=== PATIENT | male | born 1960 | race Caucasian/White ===

== ENCOUNTER 2016-10-06 19:30 | Inpatient (IN) | payer BC ==
[~2016-10-06] VITALS: Ht 182.9 cm; Wt 65.2 kg
[2016-10-06 19:43] VITALS: BP 152/89; RESP 18
[2016-10-06] MEDS ORDERED: ATOR80TA75 PO (20:34)
[2016-10-06] MEDS ORDERED: ASC500 PO (20:34)
[2016-10-06] MEDS ORDERED: TAMS-14 PO (20:34)
[2016-10-06] MEDS ORDERED: AMLO2.5T78 PO (20:34)
[2016-10-06] MEDS ORDERED: CHOL100062 PO (20:35)
[2016-10-06] MEDS: HYDROmorphONE 1 MG/ML SYG IV PRN (21:14)
[2016-10-06] MEDS ORDERED: NACL 0.9% 3 ML SYG IV SCH (21:30)
[2016-10-06] MEDS ORDERED: ZOLPIDEM 5 MG TAB PO PRN (21:30)
[2016-10-06] MEDS ORDERED: DOCUSATE SODIUM 100 MG CAP PO PRN (21:30)
[2016-10-06] MEDS ORDERED: BISACODYL (EC) 5 MG TAB PO PRN (21:30)
[2016-10-06] MEDS ORDERED: ACETAMINOPHEN 325 MG TAB PO PRN (21:30)
--- NOTE | 2016-10-06 21:46 | HP ---
Date/Time of Note Date/Time of Note DATE: 10/06/16 TIME: 21:33 Assessment/Plan VTE Prophylaxis VTE Prophylaxis Intervention: SCD's Assessment/Plan Chief Complaint/Hosp Course This is a 56-year-old male [facility]: #1 obstructing nephrolithiasis: CAT scan on 10/05/2016 showed a 5 mm obstructing left UPJ stone causing dilatation of the left renal collecting system. There also are small nonobstructive stones within the right renal collecting system measuring up to 2 mm. At the current time I will order stat renal ultrasound. His creatinine on his labs at the transferring facility was 0.8. Will order stat CBC CMP urinalysis and urine culture. Discussed with urology archivist economic history, no need for urgent stent placement at this time. If fevers develop, then will need urgent intervention. IV fluid hydration of normal saline at 125 cc an hour. IV Dilaudid for pain control, once pain better controlled will try toradol. Flomax. #2 Multiple nonobstructing right-sided kidney stones. Patient has nonobstructive kidney stones on the right side. Continue IV fluid hydration at this time Flomax. IV pain control as per #1 #3 Lactic acidosis: Patient had a lactic acid approximately above 3 on his transfer documentation. We will repeat a stat lactate right now. Continue IV fluid hydration right now. #4 colonic diverticulosis: recommend high fiber diet, continue to monitor. #5 hypertension: Continue home medications. #6 DVT and GI prophylaxis: SCDs, Protonix. Further treatment strategy will be implemented as per the clinical course. Problems: HPI/ROS Admit Date/Time Admit Date/Time Oct 06, 2016 at 19:30 Hx of Present Illness Chief complaint: Left flank pain/kidney stone This is a 56-year-old male with past medical history of kidney stones who comes in today transferred from [facility] for left-sided kidney stones. Patient was recently seen on 10/05 at [facility] for hematuria. Patient was given IV pain medications and found to have a 5 mm obstructing stone of the left kidney as well as small 2 mm stones in the right kidney. Patient was discharged home. He returned today on 10/06/2016 back to [facility] secondary to nausea and vomiting and pain. He denied any fevers. He had left-sided flank pain. Patient was then subsequently transferred to [facility]. Of note on patient's labs there was white blood cell count of 11. Patient also had a lactate which was 2.3 and then repeat was elevated at 3. At the current time patient is lying comfortably in bed after receiving Dilaudid upon reaching [facility]. Allergies: NKDA Medications: See TITO ROS Const: As per HPI Eyes : No pain discharge or redness or change in visual acuity ENT: No pain, sore throat, congestion, congestion, dysphagia or discharge Respiratory: No shortness of breath, cough, sputum, wheezing, or pleuritic pain Cardiovascular: No chest pain, palpitation, PND, or edema GI : no change in appetite, abdominal pain, nausea, vomiting, diarrhea, constipation, or change in the color his stool Genitourinary: As per HPI Musculoskeletal: No joint pain, back pain, neck pain, restricted range of motion in neck or joints Skin: No rash, bruising or hives Neuro: No headache, dizziness, syncope, seizure, focal weakness Endocrine: No polyuria, polydipsia, temperature intolerance Psych: No hallucination, depression, anxiety or suicidal ideation PMH/Family/Social Past Medical History Kidney stones, 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 HEENT: Atraumatic, normocephalic. The pupils are equal, round and reactive. Extraocular motor are intact Neck: Supple with full range of motion. No rigidity or meningismus Chest: Nontender Lungs: Clear to auscultation bilaterally no crackles rales or wheezing Heart: Normal S1-S2, Regular rhythm and rate. No murmur, S3, or S4 Abdomen: Soft , nontender, nondistended , bowel sounds are present. No guarding no rebound tenderness , No masses or organomegaly. Mild CVA tenderness on the left to palpation. Extremities: Normal to inspection, no edema no cyanosis Neurologic: Normal mental status, speech normal, cranial nerves II through XII are intact, motor and sensory are intact, mild decrease in strength of the right upper and lower extremities compared to the left secondary to previous CVA. Additional Comments CT scan: 5mm obstructing UPJ stone causing dilatation of the left renal collecting sytstem small nonobstructing stones within the right renal collecting system measuring up to 2mm. diffuse colonic diverticulosis. please see transfer documentation for further information Medications Medications Current Medications Hydromorphone HCl (Dilaudid) 1 mg Q4H PRN IV PAIN Last administered on 21:14; Admin Dose 1 MG; Start 10/06/16 at 20:30 JEAN GRANT Oct 06, 2016 21:44
--- NOTE | 2016-10-06 22:55 | RADRPT ---
PROCEDURE: Renal US. CLINICAL INDICATION: Flank pain. Clinical concern for hydronephrosis TECHNIQUE: Multiple sonographic images of the kidneys were obtained. The images were reviewed on a PACS workstation. COMPARISON: No prior studies are available for comparison. FINDINGS: Right kidney: Normal in size, contour and echogenicity. No mass, calculus or hydronephrosis is pre sent. Renal size is estimated at 11.4 cm. Left kidney: Normal in size, contour and echogenicity. Mild hydronephrosis is present. The echoge joshua shadowing focus of 3 mm in the interpolar region and likely a calculus. No evidence of mass. R enal size is estimated at 11 cm. Urinary bladder: Unremarkable RPTAT:HJJR IMPRESSION: Mild left hydronephrosis with a small 3 mm left renal calculus. Physician Zia Date Time Electronically viewed and signed by Physician Zia on 10/06/2016 22:55 /
[2016-10-06 23:14] LABS: ADD SCAN DIFF NO
[2016-10-06 23:15] LABS: BASOPHILS % 0.3 % (0.0-2.0); EOSINOPHILS # 0.1 10^3/ul (0.0-0.5); EOSINOPHILS % 0.5 % (0.0-7.0); HEMOGLOBIN 13.6 g/dl (14.0-18.0); LYMPHOCYTES # 1.3 10^3/ul (0.8-2.9); LYMPHOCYTES % 9.8 % (15.0-51.0); MEAN CORPUSCULAR HEMOGLOBIN 30.4 pg (29.0-33.0); MEAN CORPUSCULAR VOLUME 89.3 fl (82.0-101.0); MEAN PLATELET VOLUME 9.2 fl (7.4-10.4); MONOCYTE # 0.8 10^3/ul (0.3-0.9); MONOCYTES % 5.8 % (0.0-11.0); NEUTROPHIL # 10.8 10^3/ul (1.6-7.5); NEUTROPHILS % 83.4 % (39.0-77.0); PLATELET COUNT 315 10^3/UL (140-415); RED BLOOD COUNT 4.48 10^6/ul (4.70-6.10); RED CELL DISTRIBUTION WIDTH 13.2 % (11.5-14.5)
[2016-10-06] MEDS: SOD CHLORIDE 0.9% 1,000 ML IV SCH (23:17)
[2016-10-06 23:34] LABS: ALBUMIN 4.8 g/dl (3.3-4.9); ALBUMIN/GLOBULIN RATIO 2.18; BILIRUBIN,INDIRECT 1.5 mg/dl (0-1.1); BILIRUBIN,TOTAL 1.5 mg/dl (0.2-1.3); CALCIUM 9.9 mg/dl (8.4-10.2); CREATININE 0.65 mg/dl (0.61-1.24); POTASSIUM 3.9 mmol/L (3.5-5.1)
[2016-10-07] MEDS ORDERED: ASPI-664 PO
[2016-10-07 00:04] LABS: ADD UMIC YES; UR ASCORBIC ACID 20 mg/dL (NEGATIVE); UR BACTERIA FEW /HPF (NONE SEEN); UR BILIRUBIN (Dip) NEGATIVE (NEGATIVE); UR BLOOD (Dip) 3+ mg/dL (NEGATIVE); UR CLARITY SLIGHTLY CLOUDY (CLEAR); UR COLOR YELLOW (YELLOW); UR GLUCOSE (Dip) NEGATIVE (NEGATIVE); UR KETONES (Dip) NEGATIVE (NEGATIVE); UR LEUKOCYTE ESTERASE (Dip) 1+ Leu/ul (NEGATIVE); UR MUCUS FEW /HPF (NONE SEEN); UR NITRITE (Dip) NEGATIVE (NEGATIVE); UR RBC > 182 /HPF (0-5); UR SPECIFIC GRAVITY (Dip) 1.014 (1.003-1.030); UR TOTAL PROTEIN (Dip) NEGATIVE (NEGATIVE); UR UROBILINOGEN (Dip) NEGATIVE (NEGATIVE)
[2016-10-07] MEDS: HYDROmorphONE 1 MG/ML SYG IV PRN ×2 (00:51→06:08)
[2016-10-07] MEDS: ONDANSETRON 4 MG INJ IV PRN ×2 (00:56→10:06)
[2016-10-07] MEDS: LEVOFLOXACIN 750MG/D5W (PMX) 150 ML IVPB SCH (02:02)
[2016-10-07] MEDS ORDERED: KETOROLAC 15 MG INJ IV STA (02:08)
[2016-10-07 03:37] VITALS: BP 142/84; RESP 18
[2016-10-07] MEDS: SOD CHLORIDE 0.9% 1,000 ML IV SCH ×4 (05:28→20:31)
[2016-10-07] MEDS: PANTOPRAZOLE 40 MG INJ IV SCH (06:08)
[2016-10-07 06:12] LABS: ADD SCAN DIFF NO
[2016-10-07 06:15] LABS: BASOPHILS % 0.2 % (0.0-2.0); EOSINOPHILS # 0.1 10^3/ul (0.0-0.5); EOSINOPHILS % 0.5 % (0.0-7.0); HEMATOCRIT 38.8 % (42.0-52.0); HEMOGLOBIN 13.4 g/dl (14.0-18.0); LYMPHOCYTES # 1.5 10^3/ul (0.8-2.9); LYMPHOCYTES % 13.7 % (15.0-51.0); MEAN CORPUSCULAR HEMOGLOBIN 30.8 pg (29.0-33.0); MEAN CORPUSCULAR HGB CONC 34.5 g/dl (32.0-37.0); MEAN CORPUSCULAR VOLUME 89.2 fl (82.0-101.0); MEAN PLATELET VOLUME 9.4 fl (7.4-10.4); MONOCYTE # 0.6 10^3/ul (0.3-0.9); MONOCYTES % 5.7 % (0.0-11.0); NEUTROPHIL # 8.4 10^3/ul (1.6-7.5); NEUTROPHILS % 79.6 % (39.0-77.0); PLATELET COUNT 307 10^3/UL (140-415); RED BLOOD COUNT 4.35 10^6/ul (4.70-6.10); RED CELL DISTRIBUTION WIDTH 13.2 % (11.5-14.5); WHITE BLOOD COUNT 10.6 10^3/ul (4.8-10.8)
[2016-10-07 06:45] LABS: ALBUMIN 4.6 g/dl (3.3-4.9); BILIRUBIN,INDIRECT 1.6 mg/dl (0-1.1); BILIRUBIN,TOTAL 1.6 mg/dl (0.2-1.3); CALCIUM 8.9 mg/dl (8.4-10.2); CREATININE 0.67 mg/dl (0.61-1.24); POTASSIUM 3.7 mmol/L (3.5-5.1); TOTAL PROTEIN 6.9 g/dl (6.1-8.1)
[2016-10-07 08:04] VITALS: BP 136/83; PULSE 82; RESP 19
--- NOTE | 2016-10-07 08:40 | PN ---
Date/Time of Note Date/Time of Note DATE: 10/07/16 TIME: 08:36 Assessment/Plan VTE Prophylaxis VTE Prophylaxis Intervention: SCD's Lines/Catheters IV Catheter Type (from Nrsg): Peripheral IV Assessment/Plan Problems: (1) Essential hypertension Status: Chronic Comment: Continue him on his amlodipine. Please note he is on tamsulosin but he denies any specific known prostate issues. I will check his postvoid residual. If he does have significant postvoid residual the tamsulosin can be rotated over to more routine alpha-steph to get 2 jobs from one medication (2) Hydronephrosis, left Status: Acute Comment: Urology has been consulted; Dr. Arnett, who will be seeing the patient today. (3) Recurrent kidney stones Status: Chronic Comment: The patient reports never having done 20 for urinary calcium collection or oxalate evaluations. In addition to the best of her knowledge she has not had a parathyroid hormone evaluation. Given his serum calcium I doubt that he has a parathyroid hormone disturbance however to complete the evaluation I will order the appropriate workup. (4) Hyperlipidemia Status: Chronic Comment: Continue statin therapy which she is tolerating without complications Qualifiers: Hyperlipidemia type: pure hypercholesterolemia Qualified Code: E78.00 - Pure hypercholesterolemia (5) Tobacco abuse Status: Chronic Comment: Strongly counseled to discontinue this. Especially in light of the prior CVA (6) Status post CVA Onset Date: ~ 09/2014 Status: Chronic Comment: Risk factor modification aggressively. This includes cessation of smoking. This is far enough in the past that would not interfere with his clearance for any type of anesthetic procedure at this time. (7) Diverticulosis Status: Chronic Comment: Noted and inactive. Qualifiers: Diverticulosis site: diverticulosis of large intestine Diverticulosis bleeding: diverticulosis without bleeding Qualified Code: K57.30 - Diverticulosis of large intestine without hemorrhage Subjective 24 Hr Interval Summary Free Text/Dictation Patient reports that his pain control is adequate at this time. He reports prior history of renal stones. Constitutional: no complaints (No fevers chills or sweats) Respiratory: no complaints Cardiovascular: no complaints Gastrointestinal: no complaints Genitourinary: bleeding Exam/Review of Systems Vital Signs Vitals Vital Signs Date Time Temp Pulse Resp B/P Pulse Ox O2 Delivery O2 Flow Rate FiO2 10/07/16 08:04 98.0 82 19 136/83 93 Room Air Intake and Output 10/06/16 10/06/16 10/07/16 15:00 23:00 07:00 Intake Total 960 ml Output Total 550 ml Balance 410 ml Exam Constitutional: alert, oriented Neck: non-tender, supple Respiratory: clear to auscultation, normal air movement Cardiovascular: nl pulses, regular rate and rhythm Gastrointestinal: nl liver, spleen, non-tender, soft Results Result Diagram: 10/07/16 0557 10/07/16 0557 Results 24 hrs Laboratory Tests Test 10/06/16 22:19 10/06/16 23:15 10/07/16 05:57 White Blood Count 13.0 H 10.6 Red Blood Count 4.48 L 4.35 L Hemoglobin 13.6 L 13.4 L Hematocrit 40.0 L 38.8 L Mean Corpuscular Volume 89.3 89.2 Mean Corpuscular Hemoglobin 30.4 30.8 Mean Corpuscular Hemoglobin Concent 34.0 34.5 Red Cell Distribution Width 13.2 13.2 Platelet Count 315 307 Mean Platelet Volume 9.2 9.4 Neutrophils % 83.4 H 79.6 H Lymphocytes % 9.8 L 13.7 L Monocytes % 5.8 5.7 Eosinophils % 0.5 0.5 Basophils % 0.3 0.2 Nucleated Red Blood Cells % 0.0 0.0 Neutrophils # 10.8 H 8.4 H Lymphocytes # 1.3 1.5 Monocytes # 0.8 0.6 Eosinophils # 0.1 0.1 Basophils # 0.0 0.0 Nucleated Red Blood Cells # 0.0 0.0 Sodium Level 140 137 Potassium Level 3.9 3.7 Chloride Level 98 102 Carbon Dioxide Level 27 26 Anion Gap 19 H 13 Blood Urea Nitrogen 13 12 Creatinine 0.65 0.67 Glucose Level 117 105 Lactic Acid Level 2.2 Calcium Level 9.9 8.9 Total Bilirubin 1.5 H 1.6 H Direct Bilirubin 0.00 0.00 Indirect Bilirubin 1.5 H 1.6 H Aspartate Amino Transf (AST/SGOT) 30 29 Alanine Aminotransferase (ALT/SGPT) 34 36 Alkaline Phosphatase 101 90 Total Protein 7.0 6.9 Albumin 4.8 4.6 Globulin 2.20 2.30 Albumin/Globulin Ratio 2.18 2.00 Urine Color YELLOW Urine Clarity SLIGHTLY CLOUDY A Urine pH 5.0 Urine Specific [place] 1.014 Urine Ketones NEGATIVE Urine Nitrite NEGATIVE Urine Bilirubin NEGATIVE Urine Urobilinogen NEGATIVE Urine Leukocyte Esterase 1+ H Urine Microscopic RBC > 182 H Urine Microscopic WBC 23 H Urine Bacteria FEW A Urine Mucus FEW A Urine Hemoglobin 3+ H Urine Glucose NEGATIVE Urine Total Protein NEGATIVE Medications Medications Current Medications Hydromorphone HCl 1 mg 1 mg Q4H PRN IV PAIN Last administered on 10/07/16 06:08 ; Admin Dose 1 MG; Start 10/06/16 at 20:30 Sodium Chloride (NS) 1,000 ml @ 125 mls/hr Q8H IV Last administered on 23:17; Admin Dose 125 MLS/HR; Start 10/06/16 at 21:28 Ondansetron HCl (Zofran Inj) 4 mg Q6H PRN IV NAUSEA AND/OR VOMITING Last administered on 10/07/16 00:56; Admin Dose 4 MG; Start 10/06/16 at 21:30 Acetaminophen (Tylenol Tab) 650 mg Q6H PRN PO PAIN LEVEL 1-3 OR FEVER; Start at 21:30 Docusate Sodium (Colace) 100 mg Q12H PRN PO CONSTIPATION; Start 10/06/16 at 21: 30 Bisacodyl (Dulcolax) 5 mg DAILY PRN PO CONSTIPATION; Start 10/06/16 at 21:30 Zolpidem Tartrate (Ambien) 5 mg QHS PRN PO SLEEP; Start 10/06/16 at 21:30 Pantoprazole (Protonix Iv) 40 mg DAILY@06 IV Last administered on 10/07/16 06: 08; Admin Dose 40 MG; Start 10/07/16 at 06:00 Amlodipine Besylate (Norvasc) 2.5 mg DAILY PO ; Start 10/07/16 at 09:00 Atorvastatin Calcium (Lipitor) 80 mg DAILY PO ; Start 10/07/16 at 09:00 Cholecalciferol (Vitamin D) 1,000 unit DAILY PO ; Start 10/07/16 at 09:00 Tamsulosin HCl 0.4 mg 0.4 mg DAILY PRN PO kidney stone; Start 10/06/16 at 22:00 Levofloxacin/ Dextrose (Levaquin 750 Mg/ D5W 150 ml (Pmx)) 150 ml @ 100 mls/hr Q24H IVPB Last administered on 10/07/16t 02:02; Admin Dose 100 MLS/HR; Start 10/07/16 at 01:00 HANS UP MD Oct 07, 2016 08:39
[2016-10-07] MEDS ORDERED: KETOROLAC 30 MG INJ IV STA (09:04)
[2016-10-07] MEDS ORDERED: LACTATED RINGER'S 1,000 ML IV ONE ×2 (09:30→18:30)
--- NOTE | 2016-10-07 09:31 | CONS ---
Date/Time of Note Date/Time of Note DATE: 10/07/16 TIME: 09:11 Assessment/Plan Assessment/Plan Additional Assessment/Plan Patient with 5mm L UPJ stone with obstruction and flank pain. Should be given a trial of spontaneous passage. Recommend around the clock NSAIDS with Flomax and PRN norco. He can be discharged with a strainer and f/u with urologist in his network. He can continue on abx until Ucx returns if one was sent from [place]. I did discuss possibility of needing surgical intervention with URS/laser lithotripsy if he fails trial of spontaneous passage, but the rate of spontaneous passage of 5mm stones in the proximal ureter without medical intervention rages from 30-98% and in the distal ureter is 71-98%. It would be much safer for trial of spontaneous passage. If patient spikes fever > 101.3, develops vomiting where he cannot marcus PO, develops pyelonephritis; then stenting would be indicated. Consultation Date/Type/Reason Admit Date/Time Oct 06, 2016 at 19:30 Reason for Consultation L UPJ 5mm stone with flank pain Hx of Present Illness Patient with hx of nephrolithasis transferred from [place] for management of pain for 5mm L UPJ stone. No fever. No hematuria. Has previously had spontaneous stone passage as well as procedure. Reports he has had pain for 2d. No nausea/ vomiting. On transfer Cr. normal. Lactic acid elevated, now normalized after IVF. Constitutional: improved, no complaints (No fevers chills or sweats) Respiratory: no complaints Cardiovascular: no complaints Gastrointestinal: no complaints Genitourinary: no complaints Skin: no complaints Neurologic: no complaints Endocrine: no complaints Lymphatic: no complaints Psychological: no complaints Immunologic: no complaints Past Medical History nephrolithiasis Medical History: hypertension Past Surgical History URS for right renal stone Family History Significant Family History: no pertinent family hx Social History Alcohol Use: none Smoking Status: Never smoker Drug Use: marijuana Exam/Review of Systems Vital Signs Vitals Vital Signs Date Time Temp Pulse Resp B/P Pulse Ox O2 Delivery O2 Flow Rate FiO2 10/07/16 08:04 98.0 82 19 136/83 93 Room Air Intake and Output 10/06/16 10/06/16 10/07/16 15:00 23:00 07:00 Intake Total 960 ml Output Total 550 ml Balance 410 ml Exam no acute distress Constitutional: alert Respiratory: clear to auscultation Cardiovascular: regular rate and rhythm Gastrointestinal: non-tender, soft Genitourinary - Male: CVA tenderness (mild on left) Musculoskeletal: nl extremities to inspection Results Result Diagram: 10/07/16 0557 10/07/16 0557 Results 24 hrs Laboratory Tests Test 10/06/16 22:19 10/06/16 23:15 10/07/16 05:57 White Blood Count 13.0 H 10.6 Red Blood Count 4.48 L 4.35 L Hemoglobin 13.6 L 13.4 L Hematocrit 40.0 L 38.8 L Mean Corpuscular Volume 89.3 89.2 Mean Corpuscular Hemoglobin 30.4 30.8 Mean Corpuscular Hemoglobin Concent 34.0 34.5 Red Cell Distribution Width 13.2 13.2 Platelet Count 315 307 Mean Platelet Volume 9.2 9.4 Neutrophils % 83.4 H 79.6 H Lymphocytes % 9.8 L 13.7 L Monocytes % 5.8 5.7 Eosinophils % 0.5 0.5 Basophils % 0.3 0.2 Nucleated Red Blood Cells % 0.0 0.0 Neutrophils # 10.8 H 8.4 H Lymphocytes # 1.3 1.5 Monocytes # 0.8 0.6 Eosinophils # 0.1 0.1 Basophils # 0.0 0.0 Nucleated Red Blood Cells # 0.0 0.0 Sodium Level 140 137 Potassium Level 3.9 3.7 Chloride Level 98 102 Carbon Dioxide Level 27 26 Anion Gap 19 H 13 Blood Urea Nitrogen 13 12 Creatinine 0.65 0.67 Glucose Level 117 105 Lactic Acid Level 2.2 Calcium Level 9.9 8.9 Total Bilirubin 1.5 H 1.6 H Direct Bilirubin 0.00 0.00 Indirect Bilirubin 1.5 H 1.6 H Aspartate Amino Transf (AST/SGOT) 30 29 Alanine Aminotransferase (ALT/SGPT) 34 36 Alkaline Phosphatase 101 90 Total Protein 7.0 6.9 Albumin 4.8 4.6 Globulin 2.20 2.30 Albumin/Globulin Ratio 2.18 2.00 Urine Color YELLOW Urine Clarity SLIGHTLY CLOUDY A Urine pH 5.0 Urine Specific [place] 1.014 Urine Ketones NEGATIVE Urine Nitrite NEGATIVE Urine Bilirubin NEGATIVE Urine Urobilinogen NEGATIVE Urine Leukocyte Esterase 1+ H Urine Microscopic RBC > 182 H Urine Microscopic WBC 23 H Urine Bacteria FEW A Urine Mucus FEW A Urine Hemoglobin 3+ H Urine Glucose NEGATIVE Urine Total Protein NEGATIVE Medications Medications Current Medications Sodium Chloride (NS) 1,000 ml @ 125 mls/hr Q8H IV Last administered on 23:17; Admin Dose 125 MLS/HR; Start 10/06/16 at 21:28 Ondansetron HCl (Zofran Inj) 4 mg Q6H PRN IV NAUSEA AND/OR VOMITING Last administered on 10/07/16 00:56; Admin Dose 4 MG; Start 10/06/16 at 21:30 Acetaminophen (Tylenol Tab) 650 mg Q6H PRN PO PAIN LEVEL 1-3 OR FEVER; Start at 21:30 Docusate Sodium (Colace) 100 mg Q12H PRN PO CONSTIPATION; Start 10/06/16 at 21: 30 Bisacodyl (Dulcolax) 5 mg DAILY PRN PO CONSTIPATION; Start 10/06/16 at 21:30 Zolpidem Tartrate (Ambien) 5 mg QHS PRN PO SLEEP; Start 10/06/16 at 21:30 Pantoprazole (Protonix Iv) 40 mg DAILY@06 IV Last administered on 10/07/16 06: 08; Admin Dose 40 MG; Start 10/07/16 at 06:00 Amlodipine Besylate (Norvasc) 2.5 mg DAILY PO ; Start 10/07/16 at 09:00 Atorvastatin Calcium (Lipitor) 80 mg DAILY PO ; Start 10/07/16 at 09:00 Cholecalciferol (Vitamin D) 1,000 unit DAILY PO ; Start 10/07/16 at 09:00 Tamsulosin HCl 0.4 mg 0.4 mg DAILY PRN PO kidney stone; Start 10/06/16 at 22:00 Levofloxacin/ Dextrose 150 ml @ 100 mls/hr Q24H IVPB Last administered on 02:02; Admin Dose 100 MLS/HR; Start 10/07/16 at 01:00 Lactated Ringer's (Lr) 1,000 ml @ 1,000 mls/hr Q1H ONCE IV ; Start 10/07/16 at 09:30; Stop 10/07/16 at 10:29; Status UNV Acetaminophen/ Hydrocodone Bitart ([place] (5/325)) 1 tab Q4H PRN PO renal stone disease; Start 10/07/16 at 09:30; Status UNV Naproxen (Naprosyn) 500 mg TID PO ; Start 10/07/16 at 13:00; Status JALEN HARRELL MD Oct 07, 2016 09:21
[2016-10-07] MEDS: CHOLECALCIFEROL 1,000 UNIT TAB PO SCH (10:02)
[2016-10-07] MEDS: ATORVASTATIN 80 MG TAB PO SCH (10:02)
[2016-10-07] MEDS: AMLODIPINE 2.5 MG TAB PO SCH (10:03)
[2016-10-07] MEDS: HYDROCODONE/APAP (5/325) TAB PO PRN ×4 (10:11→20:34)
[2016-10-07] MEDS ORDERED: HYDROmorphONE 1 MG/ML SYG IV STA (10:13)
[2016-10-07] MEDS: TAMSULOSIN (SR) 0.4 MG CAP PO PRN (11:16)
[2016-10-07] MEDS: NAPROXEN 500 MG TAB PO SCH ×2 (13:41→21:42)
[2016-10-07 19:47] VITALS: BP 156/94; RESP 20
[2016-10-08] MEDS: LEVOFLOXACIN 750MG/D5W (PMX) 150 ML IVPB SCH (01:20)
[2016-10-08 01:46] VITALS: BP 127/75; RESP 20
[2016-10-08] MEDS: SOD CHLORIDE 0.9% 1,000 ML IV SCH ×2 (05:28→06:09)
[2016-10-08] MEDS: PANTOPRAZOLE 40 MG INJ IV SCH (06:09)
[2016-10-08 08:06] VITALS: BP 141/80; RESP 19
[2016-10-08] MEDS: AMLODIPINE 2.5 MG TAB PO SCH (08:32)
[2016-10-08] MEDS: ATORVASTATIN 80 MG TAB PO SCH (08:32)
[2016-10-08] MEDS: CHOLECALCIFEROL 1,000 UNIT TAB PO SCH (08:32)
[2016-10-08] MEDS: NAPROXEN 500 MG TAB PO SCH (08:33)
[2016-10-08] MEDS: TAMSULOSIN (SR) 0.4 MG CAP PO PRN (08:35)
--- NOTE | 2016-10-08 12:09 | PDOCDIS ---
Discharge Instructions DIAGNOSIS Discharge Diagnosis Nephrolithiasis. CONDITION Patient Condition: Stable HOME CARE INSTRUCTIONS: Special Diet: regular OTHER ORDERS: Other Orders: 1. Resume home medications. 2. Regular diet as tolerated. 3. Follow-up with outpatient urology at the earliest. 4. Go to the nearest emergency room if you continues to have significant abdominal/flank pain, continuous fevers, persistent nausea/vomiting, or any other unusual signs/symptoms. 5. Resume activities as tolerated. SHANICE ARCHULETA NP Oct 08, 2016 12:09
[2016-10-08] MEDS ORDERED: LEVO500T10 PO (12:11)
--- NOTE | 2016-10-08 18:47 | DS ---
Date/Time of Note Date/Time of Note DATE: 10/08/16 TIME: 18:44 Discharge Summary Admission/Discharge Info Admit Date/Time Oct 06, 2016 at 19:30 Discharge Date/Time Oct 08, 2016 at 13:10 Discharge Diagnosis 1. Nephrolithiasis. 2. Essential hypertension. 3. Dyslipidemia. 4. Nicotine use. 5. History of stroke. 6. Diverticulosis. 7. Left hydronephrosis secondary to obstructing kidney stone. Patient Condition: Stable Consults 1. Dr. Michelle Arnett, Urology. Procedures Renal Ultrasound IMPRESSION: Mild left hydronephrosis with a small 3 mm left renal calculus. Hx of Present Illness Chief complaint: Left flank pain/kidney stone This is a 56-year-old male with past medical history of kidney stones who comes in today transferred from [facility] for left-sided kidney stones. Patient was recently seen on 10/05 at [facility] for hematuria. Patient was given IV pain medications and found to have a 5 mm obstructing stone of the left kidney as well as small 2 mm stones in the right kidney. Patient was discharged home. He returned today on 10/06/2016 back to [facility] secondary to nausea and vomiting and pain. He denied any fevers. He had left-sided flank pain. Patient was then subsequently transferred to [facility]. Of note on patient's labs there was white blood cell count of 11. Patient also had a lactate which was 2.3 and then repeat was elevated at 3. At the current time patient is lying comfortably in bed after receiving Dilaudid upon reaching [facility]. Allergies: NKDA Medications: See [facility] Hospital Course The patient was admitted to inpatient setting. The patient was started on empiric antibiotics. Patient had a left ureteropelvic junction stone. Urology evaluated the patient and recommended a trial of spontaneous passage. Nevertheless, urology recommended if the patient has a high fevers or if he has a vomiting and poor oral intake and if there is evidence of pyelonephritis then stenting. Fortunately, the patient's symptoms resolved with IV hydration. Hence urology cleared the patient to be discharged home to be followed up with outpatient neurology. The patient has a history of diverticulosis. The patient was continued on a high-fiber diet. The patient has underlying essential hypertension but he was maintained on antihypertensives. The patient also has a history of stroke. Patient was maintained on statins. The patient had a stable hospital course. The patient remained afebrile throughout the entire hospital course. The patient's urine culture 2 was negative. The patient is stable to be discharged home on oral antibiotics to be followed up with outpatient urology. Discharge Instructions 1. Resume home medications. 2. Regular diet as tolerated. 3. Follow-up with outpatient urology at the earliest. 4. Go to the nearest emergency room if you continues to have significant abdominal/flank pain, continuous fevers, persistent nausea/vomiting, or any other unusual signs/symptoms. 5. Resume activities as tolerated. The patient verbalized understanding of his discharge instructions. Case discussed with . Home Meds Active Scripts Levofloxacin* (Levofloxacin*) 500 Mg Tablet, 500 MG PO DAILY for 7 Days, TAB Prov:SHANICE ARCHULETA NP 10/08/16 Reported Medications Aspirin* (Aspirin* EC) 81 Mg Tablet.dr, 81 MG PO DAILY, TAB 10/07/16 Cholecalciferol* (Vitamin D3*) 1,000 Unit Tablet, 1000 UNIT PO DAILY, TAB 10/06/16 Tamsulosin Hcl* (Flomax*) 0.4 Mg Cap.er.24h, 0.4 MG PO DAILY Y for kidney stone , CAP 10/06/16 Ascorbic Acid (Vitamin C) 500 Mg Tab, 500 MG PO DAILY, TAB 10/06/16 Amlodipine Besylate* (Amlodipine Besylate*) 2.5 Mg Tablet, 2.5 MG PO DAILY, TAB 10/06/16 Atorvastatin* (Atorvastatin*) 80 Mg Tablet, 80 MG PO DAILY, TAB 10/06/16 Follow-up Plan Please follow-up with your primary care physician at the earliest. Please follow-up with outpatient neurology at the earliest. Primary Care Provider Kedar Odonnell Time spent on discharge: > 30 minutes Pending Labs Laboratory Tests Test 10/08/16 05:25 Ionized Calcium (Measured) 1.2mmol/L (1.1-1.4) Parathyroid Hormone (Intact) pg/ml (7.5-53.5) SHANICE ARCHULETA NP Oct 08, 2016 18:46
[2016-10-09] MEDS ORDERED: PANTOPRAZOLE (EC) 40 MG TAB PO SCH (06:00)
== END 2016-10-08 13:10 | disposition home or self-care (01) | DRG 694 ==
LOC: MS2 19:30
PROVIDERS: ADMIT Internal Medicine; ATTEND Internal Medicine
DX: N20.2 Calculus of kidney with calculus of ureter (principal); E87.2 Acidosis; I69.951 Hemiplegia and hemiparesis following unspecified cerebrovascular disease affecting right dominant side; N13.1 Hydronephrosis with ureteral stricture, not elsewhere classified; Z87.442 Personal history of urinary calculi; K57.90 Diverticulosis of intestine, part unspecified, without perforation or abscess without bleeding; I10 Essential (primary) hypertension; E78.5 Hyperlipidemia, unspecified; F17.200 Nicotine dependence, unspecified, uncomplicated
CPT/HCPCS: 76775; 80053; 81001; 82330; 82340; 83605; 83945; 83970; 85025; 86803; 87086; 87340; C9113; J1170; J1885; J1956; J2405; J7030; J7120

== ENCOUNTER 2016-12-20 06:10 | Inpatient (IN) | payer BC ==
[~2016-12-20] VITALS: Ht 182.9 cm; Wt 44.7 kg
[~2016-12-20 06:10] MED LIST: AMLO2.5T78 PO; ASC500 PO; ASPI-664 PO; ATOR80TA75 PO; CHOL100062 PO; LEVO500T10 PO; TAMS-14 PO
[2016-12-20 10:45] VITALS: BP 154/75; PULSE 87; RESP 17
[2016-12-20] MEDS ORDERED: ACETAMINOPHEN 325 MG TAB PO PRN (11:00)
[2016-12-20] MEDS ORDERED: KETOROLAC 30 MG INJ IV PRN (11:00)
[2016-12-20] MEDS ORDERED: HYDROCODONE/APAP (5/325) TAB PO PRN (11:00)
[2016-12-20] MEDS ORDERED: NACL 0.9% 3 ML SYG IV SCH (11:00)
[2016-12-20] MEDS ORDERED: TAMSULOSIN (SR) 0.4 MG CAP PO PRN (11:00)
--- NOTE | 2016-12-20 11:06 | HP ---
Date/Time of Note Date/Time of Note DATE: 12/20/16 TIME: 11:01 Assessment/Plan VTE Prophylaxis VTE Prophylaxis Intervention: SCD's Assessment/Plan Assessment/Plan 56 yo M with h/o kidney stone here for L flank pain 2/2 kidney stone lodged in L ureter PLAN IVFs,flomax, NSAIDs, morphine, strain urine eval cont home BP meds HPI/ROS Admit Date/Time Admit Date/Time Dec 20, 2016 at 10:33 Hx of Present Illness CC kidney stone HPI 56 yo M with pmhx kidney stone presented to OSH yesterday with c/o L sided flank pain and hematuria. Pt previously saw a urologist this summer for a large proximal ureteral stone but repeat imaging has not yet been done 2/2 insurance constraints Pt reports several previous kidney stones. Usual urologist Dr Chou not on staff at [facility]. Pt has left previous stones with his urologist, is not aware of stone analysis results PMH/Family/Social Past Medical History kidney stones, htn Exam/Review of Systems Exam Exam nad laying in bed MMM EOMI no mrg lungs clear abd soft no edema no rashes Additional Comments OSH labs 10.8>14.5/41.1<281 Cr 0.8 gluc 143 LA 2.[address] AP with L sided mod hydro + hydroureter with 8.3 x 7.4 x 5.5 mm stone in distal L ureter Medications Medications Current Medications Amlodipine Besylate (Norvasc) 2.5 mg DAILY PO ; Start 12/21/16 at 09:00; Status UNV Ascorbic Acid (Vitamin C) 500 mg DAILY PO ; Start 12/21/16 at 09:00; Status UNV Aspirin (Halfprin) 81 mg DAILY PO ; Start 12/21/16 at 09:00; Status UNV Atorvastatin Calcium (Lipitor) 80 mg DAILY PO ; Start 12/21/16 at 09:00; Status UNV Cholecalciferol (Vitamin D) 1,000 unit DAILY PO ; Start 12/21/16 at 09:00; Status UNV Tamsulosin HCl (Flomax) 0.4 mg DAILY PRN PO kidney stone; Start 12/20/16 at 11: 00; Status UNV NAVEEN BURGOS MD Dec 20, 2016 11:06
[2016-12-20] MEDS: morphine 2 MG INJ IV PRN ×2 (11:26→22:52)
[2016-12-20] MEDS: SOD CHLORIDE 0.9% 1,000 ML IV SCH ×3 (11:30→20:48)
[2016-12-20 13:06] VITALS: Ht 182.9 cm; Wt 44.7 kg
[2016-12-20] MEDS: KETOROLAC 30 MG INJ IV SCH ×2 (17:01→23:48)
[2016-12-20 20:35] VITALS: BP 126/69; RESP 20
[2016-12-20] MEDS: TAMSULOSIN (SR) 0.4 MG CAP PO SCH (23:47)
[2016-12-21 05:00] VITALS: BP 125/84; PULSE 62; RESP 18
[2016-12-21] MEDS: SOD CHLORIDE 0.9% 1,000 ML IV SCH ×3 (05:09→22:56)
[2016-12-21] MEDS: KETOROLAC 30 MG INJ IV SCH ×4 (05:09→22:56)
[2016-12-21 07:00] VITALS: BP 133/73; RESP 20
[2016-12-21] MEDS: ASCORBIC ACID 500 MG TAB PO SCH (08:41)
[2016-12-21] MEDS: ATORVASTATIN 80 MG TAB PO SCH (08:41)
[2016-12-21] MEDS: AMLODIPINE 2.5 MG TAB PO SCH (08:41)
[2016-12-21] MEDS: CHOLECALCIFEROL 1,000 UNIT TAB PO SCH (08:41)
[2016-12-21] MEDS: ASPIRIN (EC) 81 MG TAB PO SCH (08:42)
[2016-12-21] MEDS: ENOXAPARIN 40 MG/0.4 ML SYG SC SCH (08:45)
[2016-12-21] MEDS ORDERED: TAMSULOSIN (SR) 0.4 MG CAP PO SCH (09:00)
[2016-12-21] MEDS: morphine 2 MG INJ IV PRN ×2 (13:44→22:32)
--- NOTE | 2016-12-21 13:47 | PN ---
Date/Time of Note Date/Time of Note DATE: 12/21/16 TIME: 13:46 Assessment/Plan VTE Prophylaxis VTE Prophylaxis Intervention: SCD's Lines/Catheters IV Catheter Type (from Nrsg): Peripheral IV Urinary Cath still in place: No Assessment/Plan Assessment/Plan 56 yo M with h/o kidney stone here for L flank pain 2/2 kidney stone lodged in L ureter PLAN IVFs,flomax, NSAIDs, morphine, strain urine eval cont home BP meds Subjective 24 Hr Interval Summary Free Text/Dictation eval pending Exam/Review of Systems Vital Signs Vitals Vital Signs Date Time Temp Pulse Resp B/P Pulse Ox O2 Delivery O2 Flow Rate FiO2 12/21/16 07:00 98.5 20 133/73 97 12/21/16 05:00 62 Room Air Intake and Output 12/20/16 12/20/16 12/21/16 15:00 23:00 07:00 Intake Total 2450 ml 1330 ml Output Total 1000 ml 600 ml Balance 1450 ml 730 ml Exam nad no mrg lungs clear abd soft no rashes Medications Medications Current Medications Amlodipine Besylate (Norvasc) 2.5 mg DAILY PO Last administered on 12/21/16 08 :41; Admin Dose 2.5 MG; Start 12/21/16 at 09:00 Ascorbic Acid (Vitamin C) 500 mg DAILY PO Last administered on 12/21/16 08:41 ; Admin Dose 500 MG; Start 12/21/16 at 09:00 Aspirin (Halfprin) 81 mg DAILY PO Last administered on 12/21/16 08:42; Admin Dose 81 MG; Start 12/21/16 at 09:00 Atorvastatin Calcium (Lipitor) 80 mg DAILY PO Last administered on 12/21/16 08 :41; Admin Dose 80 MG; Start 12/21/16 at 09:00 Cholecalciferol 1000 unit 1,000 unit DAILY PO Last administered on 12/21/16 08 :41; Admin Dose 1,000 UNIT; Start 12/21/16 at 09:00 Sodium Chloride (NS) 1,000 ml @ 125 mls/hr Q8H IV Last administered on 05:09; Admin Dose 125 MLS/HR; Start 12/20/16 at 10:58 Acetaminophen (Tylenol Tab) 650 mg Q6H PRN PO PAIN LEVEL 1-3 OR FEVER; Start at 11:00 Acetaminophen/ Hydrocodone Bitart ([place] (5/325)) 1 tab Q6H PRN PO MODERATE PAIN LEVEL 4-6; Start 12/20/16 at 11:00 Morphine Sulfate (morphine) 2 mg Q4H PRN IV SEVERE PAIN LEVEL 7-10 Last administered on 12/21/16 13:44; Admin Dose 2 MG; Start 12/20/16 at 11:00 Enoxaparin Sodium (Lovenox) 40 mg DAILY SC Last administered on 12/21/16 08:45 ; Admin Dose 40 MG; Start 12/21/16 at 09:00 Ketorolac Tromethamine (Toradol) 30 mg Q6H IV Last administered on 12/21/16 11 :12; Admin Dose 30 MG; Start 12/20/16 at 17:00; Stop 12/23/16 at 16:59 Tamsulosin HCl (Flomax) 0.4 mg QHS PO Last administered on 12/20/16 23:47; Admin Dose 0.4 MG; Start 12/20/16 at 21:51 NAVEEN BURGOS MD Dec 21, 2016 13:47
[2016-12-21 14:00] VITALS: BP 121/73; RESP 18
--- NOTE | 2016-12-21 14:12 | CONS ---
Date/Time of Note Date/Time of Note DATE: 12/21/16 TIME: 14:03 Assessment/Plan Assessment/Plan Chief Complaint/Hosp Course 56-year-old male was left flank pain secondary to a left distal ureteral stone that measures 8.3 x 7.4 x 5.5 mm causing moderate left hydronephrosis and hydroureter. Patient also has right nephrolithiasis with 2 right renal stones and these are not obstructing Plan is to do a KUB to see if we see where the stone is located and then we may have to do cystoscopy ureteroscopy laser lithotripsy and insertion of a JJ stent. Problems: Consultation Date/Type/Reason Admit Date/Time Dec 20, 2016 at 10:33 Date of Consultation: Dec 21, 2016 Type of Consultation: Urology Reason for Consultation Left ureteral stone Referring Provider: NAVEEN BURGOS MD Hx of Present Illness 56-year-old male has a history of kidney stones presented to [facility] with left flank pain for several days and hematuria. Patient underwent a CT scan of the abdomen and pelvis and that showed 8.3 x 7.4 x 5.5 mm stone in the distal left ureter, also there was a 2.5mm stone in the right kidney but that is not obstructing and another one in the lower pole of the right kidney. The patient was transferred to [facility] because of his insurance. The patient is known to have had kidney stones in the past which she passed and another time he required intervention. Patient has a history of stroke about 2 years ago and a history of hypertension. He states he recovered from his stroke and is not on any medication such as blood thinners for that. Constitutional: no complaints Eyes: no complaints ENT: no complaints Cardiovascular: no complaints Gastrointestinal: no complaints Genitourinary: flank pain (Left side), No dysuria, No hematuria Musculoskeletal: no complaints Skin: no complaints Neurologic: other (History of stroke 2 years ago) Past Medical History Medical History: hypertension, other (History of stroke 2 years ago.) Past Surgical History Past Surgical Hx: other (He did have procedure to remove ureteral stone in the past) Family History Significant Family History: no pertinent family hx Social History Alcohol Use: rarely Smoking Status: Former smoker Exam/Review of Systems Vital Signs Vitals Vital Signs Date Time Temp Pulse Resp B/P Pulse Ox O2 Delivery O2 Flow Rate FiO2 12/21/16 07:00 98.5 20 133/73 97 12/21/16 05:00 62 Room Air Intake and Output 12/20/16 12/20/16 12/21/16 15:00 23:00 07:00 Intake Total 2450 ml 1330 ml Output Total 1000 ml 600 ml Balance 1450 ml 730 ml Exam Constitutional: alert, oriented Psych: no complaints Head: normocephalic Eyes: nl conjunctiva ENMT: nl external ears & nose Neck: non-tender, supple Respiratory: normal air movement Cardiovascular: No edema Gastrointestinal: soft Genitourinary - Male: CVA tenderness (Left side) Musculoskeletal: nl extremities to inspection Extremities: No calf tenderness, No edema Medications Medications Current Medications Amlodipine Besylate (Norvasc) 2.5 mg DAILY PO Last administered on 12/21/16 08 :41; Admin Dose 2.5 MG; Start 12/21/16 at 09:00 Ascorbic Acid (Vitamin C) 500 mg DAILY PO Last administered on 12/21/16 08:41 ; Admin Dose 500 MG; Start 12/21/16 at 09:00 Aspirin (Halfprin) 81 mg DAILY PO Last administered on 12/21/16 08:42; Admin Dose 81 MG; Start 12/21/16 at 09:00 Atorvastatin Calcium (Lipitor) 80 mg DAILY PO Last administered on 12/21/16 08 :41; Admin Dose 80 MG; Start 12/21/16 at 09:00 Cholecalciferol 1000 unit 1,000 unit DAILY PO Last administered on 12/21/16 08 :41; Admin Dose 1,000 UNIT; Start 12/21/16 at 09:00 Sodium Chloride (NS) 1,000 ml @ 125 mls/hr Q8H IV Last administered on 05:09; Admin Dose 125 MLS/HR; Start 12/20/16 at 10:58 Acetaminophen (Tylenol Tab) 650 mg Q6H PRN PO PAIN LEVEL 1-3 OR FEVER; Start at 11:00 Acetaminophen/ Hydrocodone Bitart ([place] (5/325)) 1 tab Q6H PRN PO MODERATE PAIN LEVEL 4-6; Start 12/20/16 at 11:00 Morphine Sulfate (morphine) 2 mg Q4H PRN IV SEVERE PAIN LEVEL 7-10 Last administered on 12/21/16 13:44; Admin Dose 2 MG; Start 12/20/16 at 11:00 Enoxaparin Sodium (Lovenox) 40 mg DAILY SC Last administered on 12/21/16 08:45 ; Admin Dose 40 MG; Start 12/21/16 at 09:00 Ketorolac Tromethamine (Toradol) 30 mg Q6H IV Last administered on 12/21/16 11 :12; Admin Dose 30 MG; Start 12/20/16 at 17:00; Stop 12/23/16 at 16:59 Tamsulosin HCl (Flomax) 0.4 mg QHS PO Last administered on 12/20/16 23:47; Admin Dose 0.4 MG; Start 12/20/16 at 21:51 FOUZIA BURNETTE MD Dec 21, 2016 14:12
--- NOTE | 2016-12-21 15:10 | RADRPT ---
AMENDMENT: 12/21/2016 5:08:03 PM Oz Pearce MD Comparison is made with renal ultrasound dated 20:17. The 3 mm left renal calculus seen on prior ultrasound dated 10/06/2016 is not visualized with plain radiograph. PROCEDURE: XR Abdomen. CLINICAL INDICATION: Abdomen pain. TECHNIQUE: AP supine abdomen x-ray. COMPARISON: None. FINDINGS: The bowel gas pattern is normal. There is no evidence of obstruction. There are no abnormal calcifications overlying the urinary tracts. Surgical clips are present in the left inguinal region. There are degenerative changes of the spine. There is a tube overlying the upper abdomen. IMPRESSION: 1. Surgical clips in the left inguinal region. 2. Degenerative changes of the spine. 3. Tube overlying the upper abdomen. RPTAT: QQ .Oz Pearce MD, MD Date Time Electronically viewed and signed by .Oz Pearce MD, MD on 12/21/2016 17:08 .R/
[2016-12-21 19:35] VITALS: BP 131/78; RESP 18
[2016-12-21] MEDS: TAMSULOSIN (SR) 0.4 MG CAP PO SCH (20:19)
[2016-12-22] VITALS (20 sets, daily range): BP systolic 119–178; BP diastolic 55–106; PULSE 56–82; RESP 14–25
[2016-12-22] MEDS: KETOROLAC 30 MG INJ IV SCH ×4 (05:19→23:46)
[2016-12-22 05:40] LABS: BASOPHILS % 0.4 % (0.0-2.0); EOSINOPHILS # 0.3 10^3/ul (0.0-0.5); EOSINOPHILS % 4.3 % (0.0-7.0); HEMATOCRIT 37.8 % (42.0-52.0); HEMOGLOBIN 12.7 g/dl (14.0-18.0); LYMPHOCYTES # 1.8 10^3/ul (0.8-2.9); LYMPHOCYTES % 24.9 % (15.0-51.0); MEAN CORPUSCULAR HGB CONC 33.6 g/dl (32.0-37.0); MEAN CORPUSCULAR VOLUME 89.4 fl (82.0-101.0); MEAN PLATELET VOLUME 9.5 fl (7.4-10.4); MONOCYTE # 0.6 10^3/ul (0.3-0.9); MONOCYTES % 8.3 % (0.0-11.0); NEUTROPHIL # 4.4 10^3/ul (1.6-7.5); PLATELET COUNT 244 10^3/UL (140-415); RED BLOOD COUNT 4.23 10^6/ul (4.70-6.10); RED CELL DISTRIBUTION WIDTH 13.1 % (11.5-14.5); WHITE BLOOD COUNT 7.1 10^3/ul (4.8-10.8)
[2016-12-22 05:43] LABS: INR 0.99; PROTIME 13.1 Sec (12.2-14.2)
[2016-12-22 05:44] LABS: PARTIAL THROMBOPLASTIN TIME 28.7 Sec (25.0-35.0)
[2016-12-22 06:07] LABS: CALCIUM 8.7 mg/dl (8.4-10.2); CREATININE 0.61 mg/dl (0.61-1.24); POTASSIUM 3.7 mmol/L (3.5-5.1)
[2016-12-22] MEDS: morphine 2 MG INJ IV PRN (07:54)
[2016-12-22] MEDS: ASPIRIN (EC) 81 MG TAB PO SCH (09:00)
[2016-12-22] MEDS: ENOXAPARIN 40 MG/0.4 ML SYG SC SCH (09:00)
[2016-12-22] MEDS: ASCORBIC ACID 500 MG TAB PO SCH (09:00)
[2016-12-22] MEDS: CHOLECALCIFEROL 1,000 UNIT TAB PO SCH (09:00)
--- NOTE | 2016-12-22 10:42 | RADRPT ---
PROCEDURE: XR Chest 1 View. CLINICAL INDICATION: Abnormal breath sounds, preop. TECHNIQUE: AP view of the chest was obtained. COMPARISON: None. FINDINGS: The cardiomediastinal silhouette is within normal limits. Elevated right hemidiaphragm is identified . No consolidations are identified. No pneumothorax is seen. Osseous structures are intact. IMPRESSION: Elevated right hemidiaphragm. Clear lungs. RPTAT: AA .Rodo Farrar MD, MD Date Time Electronically viewed and signed by .Rodo Farrar MD, on 12/22/2016 10:42 .P/
[2016-12-22] MEDS: SOD CHLORIDE 0.9% 1,000 ML IV SCH ×2 (11:20→18:58)
--- NOTE | 2016-12-22 12:21 | PN ---
Date/Time of Note Date/Time of Note DATE: 12/22/16 TIME: 12:19 Assessment/Plan VTE Prophylaxis VTE Prophylaxis Intervention: SCD's Lines/Catheters IV Catheter Type (from Nrsg): Peripheral IV Urinary Cath still in place: No Assessment/Plan Assessment/Plan 56 yo M with h/o kidney stone here for L flank pain 2/2 kidney stone lodged in L ureter PLAN IVFs,flomax, NSAIDs, morphine, strain urine intervention likely today cont home BP meds pt will need outpatient f/u, likely stone analysis to determine cause. Ca nl and PTH checked last admit nl. Consider uric acid stone? But will await stone composition eval Subjective 24 Hr Interval Summary Free Text/Dictation Pt excited to get the stone out of his ureter! Exam/Review of Systems Vital Signs Vitals Vital Signs Date Time Temp Pulse Resp B/P Pulse Ox O2 Delivery O2 Flow Rate FiO2 12/22/16 07:53 98.0 66 15 121/74 98 12/22/16 05:31 Room Air Intake and Output 12/21/16 12/21/16 12/22/16 15:00 23:00 07:00 Intake Total 3160 ml 750 ml Output Total 1400 ml Balance 1760 ml 750 ml Exam nad laying in bed no mrg lungs clear abd soft no rashes Results Result Diagram: 12/22/164 12/22/164 Results 24 hrs Laboratory Tests Test 12/22/16 04:54 White Blood Count 7.1 # Red Blood Count 4.23 L Hemoglobin 12.7 L Hematocrit 37.8 L Mean Corpuscular Volume 89.4 Mean Corpuscular Hemoglobin 30.0 Mean Corpuscular Hemoglobin Concent 33.6 Red Cell Distribution Width 13.1 Platelet Count 244 # Mean Platelet Volume 9.5 Neutrophils % 62.0 Lymphocytes % 24.9 Monocytes % 8.3 Eosinophils % 4.3 Basophils % 0.4 Nucleated Red Blood Cells % 0.0 Neutrophils # 4.4 Lymphocytes # 1.8 Monocytes # 0.6 Eosinophils # 0.3 Basophils # 0.0 Nucleated Red Blood Cells # 0.0 Prothrombin Time 13.1 Prothrombin Time Ratio 1.0 INR International Normalized Ratio 0.99 Activated Partial Thromboplast Time 28.7 Sodium Level 142 Potassium Level 3.7 Chloride Level 109 Carbon Dioxide Level 27 Anion Gap 10 Blood Urea Nitrogen 11 Creatinine 0.61 Glucose Level 89 Calcium Level 8.7 Medications Medications Current Medications Amlodipine Besylate (Norvasc) 2.5 mg DAILY PO Last administered on 12/21/16 08 :41; Admin Dose 2.5 MG; Start 12/21/16 at 09:00 Ascorbic Acid (Vitamin C) 500 mg DAILY PO Last administered on 12/21/16 08:41 ; Admin Dose 500 MG; Start 12/21/16 at 09:00 Aspirin (Halfprin) 81 mg DAILY PO Last administered on 12/21/16 08:42; Admin Dose 81 MG; Start 12/21/16 at 09:00 Atorvastatin Calcium (Lipitor) 80 mg DAILY PO Last administered on 12/21/16 08 :41; Admin Dose 80 MG; Start 12/21/16 at 09:00 Cholecalciferol 1000 unit 1,000 unit DAILY PO Last administered on 12/21/16 08 :41; Admin Dose 1,000 UNIT; Start 12/21/16 at 09:00 Sodium Chloride (NS) 1,000 ml @ 125 mls/hr Q8H IV Last administered on 11:20; Admin Dose 125 MLS/HR; Start 12/20/16 at 10:58 Acetaminophen (Tylenol Tab) 650 mg Q6H PRN PO PAIN LEVEL 1-3 OR FEVER; Start at 11:00 Acetaminophen/ Hydrocodone Bitart ([place] (5/325)) 1 tab Q6H PRN PO MODERATE PAIN LEVEL 4-6; Start 12/20/16 at 11:00 Morphine Sulfate (morphine) 2 mg Q4H PRN IV SEVERE PAIN LEVEL 7-10 Last administered on 12/22/16 07:54; Admin Dose 2 MG; Start 12/20/16 at 11:00 Enoxaparin Sodium (Lovenox) 40 mg DAILY SC Last administered on 12/21/16 08:45 ; Admin Dose 40 MG; Start 12/21/16 at 09:00 Ketorolac Tromethamine (Toradol) 30 mg Q6H IV Last administered on 12/22/16 11 :19; Admin Dose 30 MG; Start 12/20/16 at 17:00; Stop 12/23/16 at 16:59 Tamsulosin HCl (Flomax) 0.4 mg QHS PO Last administered on 12/21/16 20:19; Admin Dose 0.4 MG; Start 12/20/16 at 21:51 NAVEEN BURGOS MD Dec 22, 2016 12:21
[2016-12-22] MEDS ORDERED: PROPOFOL 20 ML ONE (12:46)
[2016-12-22] MEDS ORDERED: FENTAnyl 50 MCG/ML VIAL ONE (12:46)
[2016-12-22] MEDS ORDERED: LIDOCAINE 2% (SDV) 5 ML INJ ONE (12:46)
[2016-12-22] MEDS ORDERED: MIDAZOLAM 1 MG/ML 2 ML INJ ONE (12:46)
[2016-12-22] MEDS ORDERED: MEPERIDINE 25 MG INJ IV PRN (13:00)
[2016-12-22] MEDS ORDERED: DIPHENHYDRAMINE 50 MG INJ IV PRN (13:00)
[2016-12-22] MEDS ORDERED: hydrALAzine 20 MG INJ IV PRN (13:00)
[2016-12-22] MEDS ORDERED: LABETALOL HCL 20MG INJ IV PRN (13:00)
[2016-12-22] MEDS ORDERED: FENTAnyl 50 MCG/ML VIAL IV PRN (13:00)
[2016-12-22] MEDS ORDERED: METOCLOPRAMIDE 10 MG INJ IV PRN (13:00)
[2016-12-22] MEDS ORDERED: PROCHLORPERAZINE 10 MG INJ IV PRN (13:00)
[2016-12-22] MEDS ORDERED: EPHEDrine SULFATE 50 MG/5 ML SYG IV PRN (13:00)
[2016-12-22] MEDS ORDERED: HYDROmorphONE (0.2 MG/ML) 10ML SYG IV PRN (13:00)
[2016-12-22] MEDS ORDERED: OXYCODONE/ACETAMINOPHEN (5/325) TAB PO PRN ×2 (13:00)
[2016-12-22] MEDS ORDERED: ONDANSETRON 4 MG INJ IV PRN (13:00)
--- NOTE | 2016-12-22 13:01 | HPN ---
Date/Time of Note Date/Time of Note DATE: 12/22/16 TIME: 13:01 Interval H&P Admission Note Pt. seen H&P reviewed: No system changes FOUZIA BURNETTE MD Dec 22, 2016 13:01
[2016-12-22] MEDS ORDERED: ONDANSETRON 4 MG INJ ONE (13:22)
[2016-12-22] MEDS ORDERED: CEFAZOLIN 1 GM INJ ONE (13:22)
[2016-12-22] MEDS ORDERED: METOCLOPRAMIDE 10 MG INJ ONE (13:22)
[2016-12-22] MEDS ORDERED: EPHEDrine SULFATE 50 MG/5 ML SYG ONE (13:40)
--- NOTE | 2016-12-22 15:16 | OPR ---
Date/Time of Note Date/Time of Note DATE: 12/22/16 TIME: 15:06 Operative Report Procedure Date: Dec 22, 2016 Preoperative Diagnosis Left ureteral stone over the sacroiliac joint area Postoperative Diagnosis Left ureteral stone over the sacroiliac joint area Operation Performed Cystoscopy,left ureteroscopy, laser lithotripsy and insertion of left ureteral JJ stent size 6 Malagasy by 24 cm long Surgeon Beau Scott Anesthesia Type: general Anesthesiologist: JOJO HERNANDEZ MD Estimated Blood Loss: minimal Specimens Left ureteral stone fragments Complications: no Disposition: PACU Indications Left ureteral stone with hydronephrosis Procedure Description The patient was brought to the operating room. Time out was done the patient was identified by her name, birthdate, the procedure and the side of the procedure. The patient was given 2 g of Ancef IV at the start of the procedure. The patient was then positioned in the lithotomy position and the genital area was prepped and draped in the usual sterile manner. #21 Malagasy cystoscope sheath was introduced under direct vision into the bladder. The left ureteral orifice was visualized and cannulated was a 5 Malagasy open ended ureteral catheter. A 0.035 zip wire was introduced into the left ureter, once it reached the stone it was not going up, however with some manipulation it did bypass the stone and did go up to the kidney. A dual lumen catheter was then advanced on the wire and through the second lumen of the catheter another zip wire was passed to the kidney. The dual-lumen was then removed and 1 of the wires was used as a safety wire and secured, the other wire was used to advance the access sheath size 11-13 mm outside diameter and 28 cm long. Then the digital flexible ureteroscope was passed through the access sheath into the left ureter, however the ureter was tight and the digital flexible ureteroscope could not be advanced to the level of the stone. Therefore I removed the access sheath and the digital ureteroscope and then used the rigid ureteroscope . The rigid ureteroscope was advanced on the zip wire to the level of the stone , the stone was visualized, then the wire was removed and the 265 m laser fiber was used and the holmium laser was used to break the stone into multiple pieces. these pieces were then basketed one at a time and dropped into the bladder, one piece was large that it needed further breaking by the laser and once that was done the remaining stone fragments were removed and the ureter was cleared completely from the stone fragments. Then I did the cystoscopy and drained all the stone fragments out of the bladder. Then I reintroduced the cystoscope on the safety wire and inserted a 6 Malagasy by 24 cm long JJ stent in the left ureter under fluoroscopy, had its proximal end curling into the kidney and the distal end curling into the bladder. The distal end is attached to a string that was brought out through the urethra and taped with 2 pieces of Tegaderm on the penis. The patient tolerated the procedure well and was transferred to recovery room in stable and satisfactory condition BEAU SCOTT MD Dec 22, 2016 15:16
[2016-12-22] MEDS: HYDROmorphONE (0.2 MG/ML) 10ML SYG IV PRN ×2 (15:18→15:23)
[2016-12-22] MEDS: ATORVASTATIN 80 MG TAB PO SCH (16:20)
[2016-12-22] MEDS: AMLODIPINE 2.5 MG TAB PO SCH (16:21)
--- NOTE | 2016-12-22 18:34 | RADRPT ---
PROCEDURE: Intraoperative imaging of the abdomen and pelvis with fluoroscopy. CLINICAL INDICATION: Left urinary tract calculi. Intraoperative. TECHNIQUE: 12 images of the abdomen and pelvis were obtained in the operating room with an image i ntensifier. No radiologist was in attendance. 2 minutes and 50 seconds of fluoroscopy time was use d. COMPARISON: Abdomen radiograph dated 12/21/2016. FINDINGS: Images demonstrate instrumentation of the left urinary tract and subsequent placement of a left uret eral double pigtail stent. IMPRESSION: 1. Satisfactory intraoperative imaging of the abdomen and pelvis. RPTAT: QQ .Oz Pearce MD, Date Time Electronically viewed and signed by .Oz Pearce MD, on 12/22/2016 18:33 .R/
[2016-12-22] MEDS: TAMSULOSIN (SR) 0.4 MG CAP PO SCH (22:41)
[2016-12-23] VITALS: BP 123/72; RESP 18
[2016-12-23] MEDS: SOD CHLORIDE 0.9% 1,000 ML IV SCH (03:51)
[2016-12-23] MEDS: KETOROLAC 30 MG INJ IV SCH (06:15)
[2016-12-23 07:38] VITALS: BP 125/81; RESP 18
[2016-12-23] MEDS: ENOXAPARIN 40 MG/0.4 ML SYG SC SCH (09:03)
[2016-12-23] MEDS: ATORVASTATIN 80 MG TAB PO SCH (09:03)
[2016-12-23] MEDS: AMLODIPINE 2.5 MG TAB PO SCH (09:04)
[2016-12-23] MEDS: ASCORBIC ACID 500 MG TAB PO SCH (09:04)
[2016-12-23] MEDS: ASPIRIN (EC) 81 MG TAB PO SCH (09:04)
[2016-12-23] MEDS: CHOLECALCIFEROL 1,000 UNIT TAB PO SCH (09:04)
--- NOTE | 2016-12-23 09:06 | PDOCDIS ---
Discharge Instructions CONDITION Patient Condition: Stable FOLLOW UP/APPOINTMENTS Follow-up Plan Call Dr Scott's office to schedule a follow up visit within 2 weeks Office Address [address] [facility] [address] [place] [id number] Office NAVEEN BURGOS MD Dec 23, 2016 09:06
--- NOTE | 2016-12-23 09:07 | DS ---
Date/Time of Note Date/Time of Note DATE: 12/23/16 TIME: 09:07 Discharge Summary Admission/Discharge Info Admit Date/Time Dec 20, 2016 at 10:33 Discharge Date/Time Discharge Diagnosis symptomatic L ureteral stone Patient Condition: Good Consults urology Procedures 9.23: Cystoscopy,left ureteroscopy, laser lithotripsy and insertion of left ureteral JJ stent size 6 Chinese by 24 cm long Hx of Present Illness CC kidney stone HPI 56 yo M with pmhx kidney stone presented to OSH yesterday with c/o L sided flank pain and hematuria. Pt previously saw a urologist this summer for a large proximal ureteral stone but repeat imaging has not yet been done 2/2 insurance constraints Pt reports several previous kidney stones. Usual urologist Dr Chou not on staff at [facility]. Pt has left previous stones with his urologist, is not aware of stone analysis results Hospital Course 56-year-old male was left flank pain secondary to a left distal ureteral stone that measures 8.3 x 7.4 x 5.5 mm causing moderate left hydronephrosis and hydroureter. Pt seen by urology, stone removed in the OR 9.23. Stone analysis results pending at time of discharge. Pt to f/u with for stone results to determine what lifestyle/medication regimens are indicated to prevent further stone formation. Home Meds Reported Medications Aspirin* (Aspirin* EC) 81 Mg Tablet.dr, 81 MG PO DAILY, TAB 10/07/16 Cholecalciferol* (Vitamin D3*) 1,000 Unit Tablet, 1000 UNIT PO DAILY, TAB 10/06/16 Tamsulosin Hcl* (Flomax*) 0.4 Mg Cap.er.24h, 0.4 MG PO DAILY Y for kidney stone , CAP 10/06/16 Ascorbic Acid (Vitamin C) 500 Mg Tab, 500 MG PO DAILY, TAB 10/06/16 Amlodipine Besylate* (Amlodipine Besylate*) 2.5 Mg Tablet, 2.5 MG PO DAILY, TAB 10/06/16 Atorvastatin* (Atorvastatin*) 80 Mg Tablet, 80 MG PO DAILY, TAB 10/06/16 Discontinued Scripts Levofloxacin* (Levofloxacin*) 500 Mg Tablet, 500 MG PO DAILY for 7 Days, TAB Prov:SHANICE ARCHULETA NP 10/08/16 Follow-up Plan Call Dr Burnette's office to schedule a follow up visit within 2 weeks Office Address [address] [facility] [address] [place] [address] Office Primary Care Provider Kedar Odonnell Time spent on discharge: > 30 minutes Copies To: CC: FOUZIA BURNETTE MD, ELLEN MD Dec 23, 2016 09:07
--- NOTE | 2016-12-24 08:38 | RADRPT ---
Vent Rate: 65 bpm RR Interval: 0 msec TN Interval: 202 msec QRS Duration: 90 msec QT Interval: 378 msec QTC Interval: 393 msec P-R-T [place]: 58 - -44 - 36 degrees Normal sinus rhythm Left axis deviation Cannot rule out Anterior infarct , age undetermined Abnormal ECG Electronically Signed By: Evangelista Becerril [id number]
== END 2016-12-23 11:20 | disposition home or self-care (01) | DRG 669 ==
LOC: MS1 10:33
PROVIDERS: ADMIT Family Medicine; ATTEND Family Medicine
PROC: 0T778DZ Dilation of Left Ureter with Intraluminal Device, Via Natural or Artificial Opening Endoscopic (ICD-10-PCS; 2016-12-22)
PROC: 0TC78ZZ Extirpation of Matter from Left Ureter, Via Natural or Artificial Opening Endoscopic (ICD-10-PCS; principal; 2016-12-22 11:00)
DX: N13.2 Hydronephrosis with renal and ureteral calculous obstruction (principal); I10 Essential (primary) hypertension; Z86.73 Personal history of transient ischemic attack (TIA), and cerebral infarction without residual deficits; Z87.891 Personal history of nicotine dependence
CPT/HCPCS: 71010; 74000; 74430; 80048; 85025; 85610; 85730; 88300; 93005; C2617; J0690; J1170; J1650; J1885; J2250; J2270; J2405; J2765; J3010; J7030